=== PATIENT | female | born 1950 | race Native Hawaiian/Other Pacific Islander ===

== ENCOUNTER 2023-05-31 13:18 | Outpatient (AMB) | payer MEDICARE, MEDICAID, SELFPAY ==
--- NOTE | 2023-05-31 13:24 | A.OFFVIS_ITS ---
Intake Vital Signs 05/31/23 13:32 Weight 133 lb 8 oz BP 185/79 H Blood Pressure Location Lt brachial Position Sitting Respiration 18 Pulse 87 Pulse Source Pulse Oximeter Pulse Oximetry (%) 99 Oxygen Delivery Method Room Air Intake Visit Reasons: Neuropathy, DM2 / Confirmed Allergies No Known Allergies Allergy (Verified 05/31/23 13:25) HPI HPI Comments History of Present Illness Details Mamta is very pleasant 73-year-old female who presented to the office today, accompanied by her granddaughter, for evaluation and management of her painful diabetic neuropathy. Patient reports that she has been suffering with this pain for approximately 5 years. she endorses pins and needles to both feet, left worse than the right that is more bothersome at night when she is trying to sleep. She currently rates her pain as 10/10. She is prescribed gabapentin that she takes with minimal relief. Patient is known diabetic, most recent A1c April 2023 was 11.5. She is checking her blood sugars 4 times daily and taking her medications as prescribed. She is currently under the care of an mobile phone salesperson. In terms of muscle damage condition is described as aching, spasming, shooting, dull, tiring, numb, stabbing, sharp, tingling, pins and needles. Pain is negatively impacting patient's general activity, normal work and walking. 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 Answers questions appropriately. Fully engaged in examination. Skin: warm, dry, intact HEENT: Normocephalic. Hearing intact. Cardiac: External chest normal in appearance. Respiratory: No cough, audible wheezing or stridor. Abdomen: without gross distension. MS: No obvious swelling or deformities. Able to transition from sit to stand unassisted. Light touch sensation intact both feet Neurological: Oriented to person, place, time and situation. Thought process intact. Psychiatric: Appropriate mood and affect. Good judgment and insight. Assessment & Plan Assessment & Plan (1) Painful diabetic neuropathy: Code(s): E11.40 - Type 2 diabetes mellitus with diabetic neuropathy, unspecified (2) Poorly controlled diabetes mellitus: Code(s): E11.65 - Type 2 diabetes mellitus with hyperglycemia Plan Mamta is a very pleasant 73 year old female who presented to the office today for evaluation management of her painful diabetic neuropathy. Discussed options for treatment including topical treatment, peripheral nerve stimulation and more permanent neuromodulation. Informational pamphlets provided. Will submit PA for Qutenza topical application. Patient advised on procedure including preparation and EMLA application prior to appointment. She is aware treatment is done in office and will take 30minutes for each application. Also discussed option for Nevro SCS trial/implant. Will discuss further if patient does not receive benefit from Qutenza topical. Patient does not currently have inside sales administrator, will refer to Dr Joshi for routine diabetic foot care. All questions and concerns have been answered and patient agrees with the plan. Patient aware she will be called to schedule appointment for Qutenza pending insurance approval. Orders: Referrals Podiatry Referral E11.65 - Type 2 diabetes mellitus with hyperglycemia Coding Level of Care Code New Pt Level 4 (33348) Diagnoses Painful diabetic neuropathy E11.40 Poorly controlled diabetes mellitus E11.65
[2023-05-31 13:32] VITALS: BP 185/79; PULSE 87; RESP 18; O2SAT 99
== END 2023-05-31 13:55 | disposition home or self-care (01) ==
PROVIDERS: PCP Physician Assistant Medical; Visit Provider Registered Nurse Emergency
DX: E11.40 Type 2 diabetes mellitus with diabetic neuropathy, unspecified (principal); E11.65 Type 2 diabetes mellitus with hyperglycemia
CPT/HCPCS: 99204

== ENCOUNTER → 2023-05-31 13:18 | Outpatient (BNVA) | payer MEDICARE, MEDICAID, SELFPAY | PROVIDERS: PCP Physician Assistant Medical; Visit Provider Registered Nurse Emergency | DX: E11.40 Type 2 diabetes mellitus with diabetic neuropathy, unspecified (principal); E11.65 Type 2 diabetes mellitus with hyperglycemia | CPT/HCPCS: 99202 ==